=== PATIENT | male | born 1990 | race Asian ===

== ENCOUNTER 2017-11-07 05:36 | Emergency (ER) | payer OTHER ==
[~2017-11-07] VITALS: Ht 182.9 cm; Wt 81.6 kg
[~2017-11-07 05:36] MED LIST: ALBUTEROL SULF8.5 GM INH; PREDNISONE20 MG ORAL
[2017-11-07 05:58] VITALS: BP 125/82
--- NOTE | 2017-11-07 06:12 | Emergency Room Report ---
History of Present Illness General Chief Complaint: General Complaint Source: Patient Present Illness HPI Is a 27-year-old male with no past medical history. He may to using crystal methamphetamine. Patient presents with several complaints. First complaint is abdominal pain. He describes a crampy in nature. Would diarrhea. No nausea no vomiting. Onset tonight. Also complaining of bilateral feet smell. Has been ongoing for a while. No nausea no vomiting. No trauma. Also has complaint of poor self-esteem. Denies any other issue. No suicidal thoughts or homicidal thought. Allergies: Coded Allergies: No Known Allergies (Unverified , 08/28/15) Patient History Past Medical History: see triage record, old chart reviewed Past Surgical History: none Pertinent Family History: none Social History: Reports: smoking, drug use Immunizations: other Reviewed Nursing Documentation: PMH: Agreed, PSxH: Agreed Nursing Documentation-PMH Past Medical History: No Stated History Review of Systems Eye: Denies: eye pain, blurred vision ENT: Denies: ear pain, nose congestion, throat swelling Respiratory: Denies: cough, shortness of breath Cardiovascular: Denies: chest pain, palpitations Gastrointestinal: Reports: abdominal pain, Denies: diarrhea, nausea, vomiting Musculoskeletal: Denies: back pain, joint pain Skin: Denies: rash Neurological: Denies: headache, numbness Endocrine: Denies: increased thirst, increased urine Hematologic/Lymphatic: Denies: easy bruising All Other Systems: negative except mentioned in HPI Physical Exam Vital Signs Date Time Temp Pulse Resp B/P (MAP) Pulse Ox O2 Delivery O2 Flow Rate FiO2 11/07/17 05:40 98.4 98 16 125/82 100 Room Air vitals normal Sp02 EP Interpretation: reviewed, normal General Appearance: well appearing, no apparent distress, alert Head: normocephalic, atraumatic Eyes: bilateral eye PERRL, bilateral eye EOMI ENT: hearing grossly normal, normal pharynx Neck: full range of motion, supple, no meningismus Respiratory: chest non-tender, lungs clear, normal breath sounds Cardiovascular #1: regular rate, rhythm, no murmur Gastrointestinal: normal bowel sounds, non tender, no mass, no organomegaly, no bruit, non-distended Musculoskeletal: back normal, gait/station normal, normal range of motion Psychiatric: mood/affect normal Skin: warm/dry Medical Decision Making Diagnostic Impression: Primary Impression: Amphetamine abuse Additional Impression: Abdominal pain Qualified Codes: R10.84 - Generalized abdominal pain ER Course Patient with abdominal pain and diarrhea. Exam is benign. No pain when I examined him. He refuse to let me look at his feet. I suspect this is most likely psychological issue with his drug abuse and underlying psych illness. It is Stable without any criteria for 5150. We'll discharge home. Last Vital Signs Date Time Temp Pulse Resp B/P (MAP) Pulse Ox O2 Delivery O2 Flow Rate FiO2 11/07/17 05:58 98.4 98 16 125/82 100 Room Air Status: unchanged Disposition: HOME, SELF-CARE Condition: Stable Additional Instructions: stop using drug Followup with your Dr. in 7 days. Return if worse. DEYVI ALVARADO M.D. Nov 07, 2017 06:12
[2017-11-07 06:23] VITALS: BP 125/82
== END 2017-11-07 06:23 | disposition home or self-care (01) ==
LOC: EMR 06:12
DX: F15.10 Other stimulant abuse, uncomplicated (principal); R10.9 Unspecified abdominal pain; R19.7 Diarrhea, unspecified
CPT/HCPCS: 99283